=== PATIENT | female | born 1980 | race Caucasian/White ===

== ENCOUNTER 2017-06-23 19:46 | Emergency (ER) | payer BC ==
[2017-06-23] MEDS ORDERED: HYDROcodone/Acetaminophen 5/325 mg Tablet ONE (21:09)
--- NOTE | 2017-06-23 21:28 | RAD ---
LEFT ANKLE FOUR VIEWS: History: Left ankle injury. FINDINGS: A mildly comminuted predominately oblique fracture of the distal fibula at the level of the ankle mor tise is present with 0.2 cm lateral displacement of the major distal fragment. Medial malleolus is in tact. Talar dome is maintained. IMPRESSION: Minimally displaced [place] class B fracture of the left lateral malleolus. POS: [facility]
== END 2017-06-23 23:03 | disposition home or self-care (01) ==
LOC: ERS 19:46
DX: S82.62XA Displaced fracture of lateral malleolus of left fibula, initial encounter for closed fracture (principal); F90.9 Attention-deficit hyperactivity disorder, unspecified type; F17.210 Nicotine dependence, cigarettes, uncomplicated; Z79.899 Other long term (current) drug therapy; W01.0XXA Fall on same level from slipping, tripping and stumbling without subsequent striking against object, initial encounter
CPT/HCPCS: 29515